=== PATIENT | female | born 1985 | race American Indian/Alaskan Native ===

== ENCOUNTER 2017-05-21 23:06 | Emergency (ER) | payer BC ==
[~2017-05-21] VITALS: Ht 157.5 cm; Wt 59.0 kg
[~2017-05-21 23:06] MED LIST: CHLO25B PO; POTCHL20ER PO; Prinivil10 MG PO
== END 2017-05-22 01:17 | disposition home or self-care (01) ==
LOC: ER 23:06
DX: S01.81XA Laceration without foreign body of other part of head, initial encounter (principal); I10 Essential (primary) hypertension; Z88.6 Allergy status to analgesic agent; Z88.5 Allergy status to narcotic agent; Z79.899 Other long term (current) drug therapy; Z87.891 Personal history of nicotine dependence; W22.8XXA Striking against or struck by other objects, initial encounter
CPT/HCPCS: 12011; 99282